=== PATIENT | female | born 1985 | race Caucasian/White ===

== ENCOUNTER 2021-01-16 10:56 | Emergency (ER) | payer OTHER, SELFPAY ==
--- NOTE | ~2021-01-16 | CT_ITS ---
EXAMINATION: CT HEAD WITHOUT CONTRAST CLINICAL INFORMATION: Headache COMPARISON: None. TECHNIQUE: Contiguous axial imaging was performed from the skull base to vertex without intravenous contrast. This CT examination was performed using dose optimization techniques as appropriate, variously including the following: * Automated exposure control * Adjustment of mA and/or kV according to patient size (this includes techniques or standardized protocols for targeted exams where dose is matched to indication/reason for exam; i.e. extremities or head) Use of iterative reconstruction technique DLP: 642 mGy-cm. FINDINGS: There is no evidence of acute intracranial hemorrhage or territorial infarction. No abnormal mass effect or midline shift is seen. Chen to white matter differentiation is well preserved. No extra-axial fluid collections are identified. No hydrocephalus. No significant volume loss. There is no abnormal attenuation within the brain parenchyma. The osseous structures and soft tissues are normal. The mastoid air cells and visualized portions of the paranasal sinuses are well aerated. CT/CT head/brain wo con IMPRESSION: No acute intracranial pathology.
[2021-01-16 11:00] VITALS: BP 177/94; PULSE 96; RESP 18; TEMP 36.9; O2SAT 100; BMI 27.1
--- NOTE | 2021-01-16 12:30 | ED_ITS ---
HPI - General Adult General Chief complaint: General Medical <Medardo Giron NP - Last Filed: 01/16/21 16:16> Stated complaint: HBP, lt arm tingling <Medardo Giron NP - Last Filed: 01/16/21 16:16> Time Seen by Provider: 01/16/21 12:30 <Medardo Giron NP - Last Filed: 01/16/21 16:16> Source: patient <Medardo Giron NP - Last Filed: 01/16/21 16:16> Mode of arrival: ambulatory <Medardo Giron NP - Last Filed: 01/16/21 16:16> Limitations: language barrier (Spokes a broken Malay request mud mixer, mud mixer present for all interactions) <Medarod Giron NP - Last Filed: 01/16/21 16:16> History of Present Illness HPI narrative: Pleasant 35-year-old female who denies any past medical/surgical history she presents today ambulatory via triage with complaint of states that she has been checking her blood pressure at home over the past 5 days or so and it has been running high and a wrist monitor, she went to urgent care 4 days ago and reported symptoms of the high blood pressure and she was started on 5 mg of lisinopril once a day. States she took this the 1st 3 days has not taken it since and today she called her primary care doctor reported her symptoms of the elevated blood pressure also a mild posterior headache and was advised to come to the emergency room. In addition to this she denies any recent illness she does report that she has had some increased stressors recently in relation to her social life including lack of work due to COVID-19, social occasions and such and this has made her overwhelmed/anxious more over the recent week or so. Furthermore she reports she will get some numbness in the right shoulder at times. No neck pain. No vision changes. No photosensitivity. No fever. <Medardo Giron NP - Last Filed: 01/16/21 16:16> Onset (ago): week(s) (1) <Medardo Giron NP - Last Filed: 01/16/21 16:16> Location: head <HERMANN English Last Filed: 01/16/21 16:16> Radiation: non-radiation <Medardo Giron NP - Last Filed: 01/16/21 16:16> Severity: moderate <Medardo Giron NP - Last Filed: 01/16/21 16:16> Quality: aching <Medardo Giron NP - Last Filed: 01/16/21 16:16> Pain Consistency: intermittent <Medardo Giron NP - Last Filed: 01/16/21 16:16> Relieving factors: other (Sleep, rest) <Medardo Giron NP - Last Filed: 01/16/21 16:16> Exacerbating factors: other (Social stressors) <Medardo Giron NP - Last Filed: 01/16/21 16:16> Associated symptoms: denies other symptoms <Medardo Giron NP - Last Filed: 01/16/21 16:16> Treatments prior to arrival: none <Medardo Giron NP - Last Filed: 01/16/21 16:16> Related Data Home medications: Previous Rx's Medication Instructions Recorded lisinopril 5 mg tablet 5 mg PO DAILY #30 tab 01/12/21 hydroxyzine HCl 50 mg PO BEDTIME PRN #30 tab 01/16/21 <Medardo Giron NP - Last Filed: 01/16/21 16:16> Allergies/adverse reactions: Allergies Allergy/AdvReac Type Severity Reaction Status Date / Time Penicillins [PENICILLINS] Allergy Severe SWELLING/RA Verified 01/16/21 10:59 SH aspirin [ASPIRIN] Allergy Intermediate SWELLING/RA Verified 01/16/21 10:59 SH penicillin V Allergy Unknown Swelling Verified 01/16/21 10:59 <Medardo Giron NP - Last Filed: 01/16/21 16:16> Review of Systems Review of Systems: Constitutional: No Weight loss, No Fever, No Chills, No Night Sweats, No Fatigue, No Malaise ENT/Mouth: No Hearing loss, No Ear Pain, No Nasal Congestion, No Sinus Pain, No Hoarseness, No sore throat, No Rhinorrhea, No Swallowing Difficulty Eyes: No Eye Pain, No Swelling, No Redness, No Foreign Body, No Discharge, No Vision Changes Cardiovascular: No Chest Pain, No SOB, No Dyspnea on Exertion, No Orthopnea, No Edema, No Palpitations Respiratory: No Cough, No Sputum, No Wheezing, No Smoke Exposure, No Dyspnea Gastrointestinal: No Nausea, No Vomiting, No Diarrhea, No Constipation, No abdominal Pain, No Hematochezia, No Melena Genitourinary: no irregular bleeding, No Dysuria, No Urinary Frequency, No Hematuria, No Urinary Incontinence, No Urgency, No Flank Pain, No Urinary Flow Changes, No Hesitancy Musculoskeletal: No joint pain, No Myalgias, No Joint Swelling Skin: No Skin Lesions, No rash Neuro: No Weakness, No Numbness, No Paresthesias, No Loss of Consciousness, No Dizziness, + Headache Psych: + Anxiety/Panic, No Depression, No SI/HI/AH/VH Heme/Lymph: No Bruising, No Bleeding,No Lymphadenopathy Endocrine: No Polyuria, No Polydipsia, No Temperature Intolerance <Medardo Giron NP - Last Filed: 01/16/21 16:16> Yes all other systems are reviewed and are negative <Medardo Giron NP - Last Filed: 01/16/21 16:16> ENT: Reports Normal hearing present <Medardo Giron NP - Last Filed: 01/16/21 16:16> Neurologic: Reports Normal hearing present <Medardo Giron NP - Last Filed: 01/16/21 16:16> [facility] Social History Social History: Social History Alcohol intake: current Alcohol intake frequency: holidays/special occasions only Smoking Status: Never smoker Use of substances other than those prescribed or required for medical reasons: No Advance Directives: No Advance Directives Information Provided: No <Medardo Giron NP - Last Filed: 01/16/21 16:16> Physical Exam Vital Signs: Vital Signs: Last Vital Signs Temp 98.6 F 01/16/21 16:15 Pulse 77 01/16/21 16:15 Resp 18 01/16/21 16:15 BP 169/97 H 01/16/21 16:15 Pulse Ox 100 01/16/21 16:15 Body Mass Index 27.1 Reviewed <Medardo Giron NP - Last Filed: 01/16/21 16:16> Vital Signs: Last Vital Signs Temp 98.6 F 01/16/21 16:15 Pulse 77 01/16/21 16:15 Resp 18 01/16/21 16:15 BP 169/97 H 01/16/21 16:15 Pulse Ox 100 01/16/21 16:15 Body Mass Index 27.1 <Camacho Mack MD - Last Filed: 01/31/21 07:45> Const: General: cooperative, healthy appearing and anxious; No acute distress or intoxicated appearing <Medardomaria luisa Giron NP - Last Filed: 01/16/21 16:16> Nutritional Appearance: average body habitus <[facility] HERMANN Giron - Last Filed: 01/16/21 16:16> Orientation/consciousness: patient oriented x3 <[facility] HERMANN Giron - Last Filed: 01/16/21 16:16> HENMT: Head: Yes normal to inspection <[facility] HERMANN Giron - Last Filed: 01/16/21 16:16> Ears: hearing grossly normal bilaterally <[facility] HERMANN Giron - Last Filed: 01/16/21 16:16> Eyes: General: appearance normal, both eyes and all related structures <[facility] HERMANN Giron - Last Filed: 01/16/21 16:16> Visual Villarreal: normal visual villarreal by confrontation <[facility] HERMANN Giron - Last Filed: 01/16/21 16:16> Pupils: Equal, round and reactive pupils present <[facility] HERMANN Giron - Last Filed: 01/16/21 16:16> Neck: Neck: Yes normal visual inspection, Yes no meningeal signs, No positive Brudzinski's sign, No positive Kernig's sign and No tender <[facility] HERMANN Giron - Last Filed: 01/16/21 16:16> Thyroid: Thyroid normal <[facility] HERMANN Giron - Last Filed: 01/16/21 16:16> Chest: Chest palpation & inspection: normal inspection of the chest <[facility] HERMANN Giron - Last Filed: 01/16/21 16:16> Resp: Effort & Inspection: normal respiratory effort <[facility] HERMANN Giron - Last Filed: 01/16/21 16:16> Auscultation: clear to auscultation bilaterally <[facility] HERMANN Giron - Last Filed: 01/16/21 16:16> Cardio: Jugular venous distension: no JVD <[facility] HERMANN Giron - Last Filed: 01/16/21 16:16> Rhythm: regular rhythm <[facility] Last Filed: 01/16/21 16:16> Heart sounds: S1 normal heart sound present and S2 normal heart sound present <[facility] Last Filed: 01/16/21 16:16> GI: Inspection: Yes normal to inspection <[facility] Last Filed: 01/16/21 16:16> Palpation (GI): Soft to palpation, nontender, no guarding and not rigid [facility] - Last Filed: 01/16/21 16:16> Percussion: Yes normal to percussion [facility] Last Filed: 01/16/21 16:16> Auscultation: normal bowel sounds <[facility] - Last Filed: 01/16/21 16:16> : General: Yes no CVA tenderness [facility] Last Filed: 01/16/21 16:16> Back/Spine/Pelvis: Back: no CVA tenderness [facility] Last Filed: 01/16/21 16:16> Skin: General skin exam: no rashes or lesions noted <[facility] Last Filed: 01/16/21 16:16> Neuro: General: patient oriented x3, gait normal, tone normal, moves all extremities, Normal light touch and pain sensation, no meningeal signs, no focal motor deficits, CN's II-XI intact bilaterally and normal sensation to monofilament <[facility] Last Filed: 01/16/21 16:16> Cranial nerves: Yes CN's II-XII intact bilaterally, Yes Facial sensation intact/muscles of mastication intact, Yes Equal, round and reactive pupils present, Yes Normal accommodation reflex present, Yes Bilaterally intact EOM present, Yes Nystagmus not present, Yes Normal facial strength present, Yes Midline tongue present, Yes Normal gag reflex present, Yes Symmetric palate elevation present, Yes Normal hearing present and Yes Ability to bilaterally rotate head present <[facility] Last Filed: 01/16/21 16:16> Cognition (Neuro): normal cognition <[facility] - Last Filed: 01/16/21 16:16> Speech: Other speech findings present (Neuro) (Speech normal) <Medardo Giron Z [employer] - Last Filed: 01/16/21 16:16> Gait exam (Neuro): Normal gait present <Medardo Giron Z [employer] - Last Filed: 01/16/21 16:16> Motor exam (neuro): 5/5 motor strength present throughout <Medardomaria luisa Giron Z [employer] - Last Filed: 01/16/21 16:16> Sensory Exam: Normal double simultaneous stimulation for sensation <Medardomaria luisa Giron Z [employer] - Last Filed: 01/16/21 16:16> Extrem: General: Yes normal to inspection <Medardo Giron Z [employer] - Last Filed: 01/16/21 16:16> NIH Stroke Scale Internal: Initial- Upon Arrival <Medardo Giron Z [employer] - Last Filed: 01/16/21 16:16> Level of Consciousness: Alert <Medardo Giron Z [employer] - Last Filed: 01/16/21 16:16> Level of Consciousness Questions: Answers both questions correctly <Medardo Giron Z [employer] - Last Filed: 01/16/21 16:16> Level of Consciousness Commands: Performs both tasks correctly <Medardo Giron Z [employer] - Last Filed: 01/16/21 16:16> Best Gaze: Normal <Medardo Giron Z [employer] - Last Filed: 01/16/21 16:16> Visual: No visual loss <Medardo Giron Z [employer] - Last Filed: 01/16/21 16:16> Facial Palsy: Normal <Medardomaria luisa Hankinsnas Z [employer] - Last Filed: 01/16/21 16:16> Motor Arm (Right): No drift <Medardomaria luisa Giron Z [employer] - Last Filed: 01/16/21 16:16> Motor Arm (Left): No drift <Medardomaria luisa Hankinsnas Z [employer] - Last Filed: 01/16/21 16:16> Motor Leg (Right): No drift <Medardomaria luisa Hankinsnas Z [employer] - Last Filed: 01/16/21 16:16> Motor Leg (Left): No drift <Medardomaria luisa Hankinsnas Z [employer] - Last Filed: 01/16/21 16:16> Limb Ataxia: Absent <Medardomaria luisa Hankinsnas Z [employer] - Last Filed: 01/16/21 16:16> Sensory: Normal <Medardomaria luisa Hankinsnas Z [employer] - Last Filed: 01/16/21 16:16> Best Language: No aphasia <Medardomaria luisa Giron NP - Last Filed: 01/16/21 16:16> Dysarthia: Normal <Medardomaria luisa Giron NP - Last Filed: 01/16/21 16:16> Extinction and Inattention: No abnormality <Medardomaria luisa Giron NP - Last Filed: 01/16/21 16:16> Score: 0 <Medardo Giron NP - Last Filed: 01/16/21 16:16> Course Course Course Narrative: I have reviewed the chart <Camacho Mack MD - Last Filed: 01/31/21 07:45> Reevaluation(s) Reevaluation #1: 1220 Constellation of symptoms I 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 She was started on lisinopril 5 mg 5 days ago. Mild occipital headache resolved with sleep and rest not worst headache or thunderclap like headache, no fevers, neck pain or injury. No family history of Ca, does have strong family of HTN. Some shoulder arm numbness on the left side without neck pain. She has no focal neurological findings on exam. Will check labs including lytes for derangement, troponin EKG for rule out ACS though story is very inconsistent with this, head CT rule out mass. Will treat her with hydroxyzine 50 mg p.o.. <Medardo Giron NP - Last Filed: 01/16/21 16:16> Reevaluation #2: CBC findings reviewed likely component of LATA H&H is stable, no active bleeding. Otherwise labs overall unrevealing, troponin negative, TSH negative. Head CT without evidence of acute intracranial process/mass. She had fact feels much better after hydroxyzine as anticipated. Her blood pressure is 149/96. Given the diastolic pressure elevation again likely secondary to the psychosocial stressors but will have her continue to keep a log of her blood pressures at home she can continue taking the 5 mg of lisinopril in the morning. Additionally I will supplement her medication regiment with hydroxyzine 50 mg at bedtime, lifestyle modifications, D stressors, low-sodium diet and she has appointment mental her GP on February 13. She otherwise is without complaints at this time no headache, chest pain or shortness of breath. Remains neurologically intact. Stable for discharge. <Medardo Giron NP - Last Filed: 01/16/21 16:16> Medical Decision Making Lab Data Result diagrams: : 01/16/21 12:54 01/16/21 12:54 <Medardo Giron NP - Last Filed: 01/16/21 16:16> Labs: Lab Results 01/16/21 01/16/21 01/16/21 Range/Units 12:54 12:54 12:54 WBC 4.7 L (4.8-10.8) X10*3/uL RBC 5.19 (4.20-5.50) X10*6/uL Hgb 11.1 L (12.0-16.0) g/dl Hct 37.7 (37-47) % MCV 72.6 L (80-98) fL MCH 21.4 L (27.0-33.0) pg MCHC 29.4 L (31.0-35.0) g/dl RDW 16.7 H (11.0-16.0) % Plt Count 277 (160-400) X10*3/uL MPV 8.8 L (9.4-12.3) fL Immature Gran % (Auto) 0.2 (0.0-0.4) % Neut % (Auto) 62.7 (45-73) % Lymph % (Auto) 25.7 (20-40) % [place] % (Auto) 7.9 (2-11) % Eos % (Auto) 2.6 (0-4) % Baso % (Auto) 0.9 (0-2) % Lymph # (Auto) 1.2 (1.2-4.9) X10*3/uL [place] # (Auto) 0.4 (0.1-1.2) X10*3/uL Eos # (Auto) 0.1 (0.0-0.4) X10*3/uL Baso # (Auto) 0.0 (0.0-0.2) X10*3/uL Abs Immat Gran (auto) 0.01 (0.00-0.03) X10*3/uL Absolute Neuts (auto) 3.0 (2.0-8.3) X10*3/uL Absolute Nucleated RBC 0.000 (0.0-0.012) X10*3/uL Nucleated RBC % (auto) 0.0 (0.0-0.2) /100WBC PT 13.0 (10.8-13.0) SEC INR 1.1 (0.9-1.1) APTT 38.9 H (24.1-38.0) SEC Sodium 138 (135-145) mmol/L Potassium 3.9 (3.3-5.1) mmol/L Chloride 102 (96-108) mmol/L Carbon Dioxide 28 (22-29) mmol/L Anion Gap 12 (12-20) BUN 10 (9-16) mg/dL Creatinine 0.65 (0.5-1.4) mg/dL Estim Creat Clear Calc 127.2 Estimated GFR > 60 Random Glucose 93 (60-115) mg/dL Calcium 9.5 (8.4-10.2) mg/dL Magnesium 2.3 (1.6-2.6) mg/dL Total Bilirubin 0.5 (0.0-1.0) mg/dL AST 17 (5-31) U/L ALT 13 (0-31) U/L Alkaline Phosphatase 70 (39-117) U/L Troponin I High Sens (<3.5-17.0) ng/L Total Protein 8.1 H (6.5-8.0) g/dL Albumin 4.6 (3.5-5.0) g/dL TSH 0.78 (0.32-4.0) uIU/mL Urine Color Urine Appearance Urine pH (5.0-8.0) Ur Specific [place] (1.005-1.025) Urine Protein (NEG-TRACE) MG/DL Urine Glucose (UA) (NEG) MG/DL Urine Ketones (NEG) MG/DL Urine Blood (NEG) Urine Nitrite (NEG) Ur Leukocyte Esterase (NEG) Urine RBC (0) /HPF Urine WBC (0-4) /HPF Ur Squamous Epith Cells /LPF Urine Bacteria /LPF Urine Opiates Screen (Not Detect) Ur Barbiturates Screen (Not Detect) Ur Phencyclidine Scrn (Not Detect) Ur Amphetamines Screen (Not Detect) U Benzodiazepines Scrn (Not Detect) Urine Cocaine Screen (Not Detect) U Marijuana (THC) Screen (Not Detect) 01/16/21 01/16/21 01/16/21 Range/Units 12:54 12:54 12:54 WBC (4.8-10.8) X10*3/uL RBC (4.20-5.50) X10*6/uL Hgb (12.0-16.0) g/dl Hct (37-47) % MCV (80-98) fL MCH (27.0-33.0) pg MCHC (31.0-35.0) g/dl RDW (11.0-16.0) % Plt Count (160-400) X10*3/uL MPV (9.4-12.3) fL Immature Gran % (Auto) (0.0-0.4) % Neut % (Auto) (45-73) % Lymph % (Auto) (20-40) % [place] % (Auto) (2-11) % Eos % (Auto) (0-4) % Baso % (Auto) (0-2) % Lymph # (Auto) (1.2-4.9) X10*3/uL [place] # (Auto) (0.1-1.2) X10*3/uL Eos # (Auto) (0.0-0.4) X10*3/uL Baso # (Auto) (0.0-0.2) X10*3/uL Abs Immat Gran (auto) (0.00-0.03) X10*3/uL Absolute Neuts (auto) (2.0-8.3) X10*3/uL Absolute Nucleated RBC (0.0-0.012) X10*3/uL Nucleated RBC % (auto) (0.0-0.2) /100WBC PT (10.8-13.0) SEC INR (0.9-1.1) APTT (24.1-38.0) SEC Sodium (135-145) mmol/L Potassium (3.3-5.1) mmol/L Chloride (96-108) mmol/L Carbon Dioxide (22-29) mmol/L Anion Gap (12-20) BUN (9-16) mg/dL Creatinine (0.5-1.4) mg/dL Estim Creat Clear Calc Estimated GFR Random Glucose (60-115) mg/dL Calcium (8.4-10.2) mg/dL Magnesium (1.6-2.6) mg/dL Total Bilirubin (0.0-1.0) mg/dL AST (5-31) U/L ALT (0-31) U/L Alkaline Phosphatase (39-117) U/L Troponin I High Sens < 3.5 (<3.5-17.0) ng/L Total Protein (6.5-8.0) g/dL Albumin (3.5-5.0) g/dL TSH (0.32-4.0) uIU/mL Urine Color YELLOW Urine Appearance CLEAR Urine pH 7.0 (5.0-8.0) Ur Specific [place] <= 1.005 (1.005-1.025) Urine Protein NEG (NEG-TRACE) MG/DL Urine Glucose (UA) NEG (NEG) MG/DL Urine Ketones NEG (NEG) MG/DL Urine Blood NEG (NEG) Urine Nitrite NEG (NEG) Ur Leukocyte Esterase NEG (NEG) Urine RBC 0 (0) /HPF Urine WBC 0 (0-4) /HPF Ur Squamous Epith Cells TRACE /LPF Urine Bacteria NONE /LPF Urine Opiates Screen Not Detected (Not Detect) Ur Barbiturates Screen Not Detected (Not Detect) Ur Phencyclidine Scrn Not Detected (Not Detect) Ur Amphetamines Screen Not Detected (Not Detect) U Benzodiazepines Scrn Not Detected (Not Detect) Urine Cocaine Screen Not Detected (Not Detect) U Marijuana (THC) Screen Not Detected (Not Detect) <Medardo Giron NP - Last Filed: 01/16/21 16:16> Lab Results 01/16/21 01/16/21 01/16/21 Range/Units 12:54 12:54 12:54 WBC 4.7 L (4.8-10.8) X10*3/uL RBC 5.19 (4.20-5.50) X10*6/uL Hgb 11.1 L (12.0-16.0) g/dl Hct 37.7 (37-47) % MCV 72.6 L (80-98) fL MCH 21.4 L (27.0-33.0) pg MCHC 29.4 L (31.0-35.0) g/dl RDW 16.7 H (11.0-16.0) % Plt Count 277 (160-400) X10*3/uL MPV 8.8 L (9.4-12.3) fL Immature Gran % (Auto) 0.2 (0.0-0.4) % Neut % (Auto) 62.7 (45-73) % Lymph % (Auto) 25.7 (20-40) % [place] % (Auto) 7.9 (2-11) % Eos % (Auto) 2.6 (0-4) % Baso % (Auto) 0.9 (0-2) % Lymph # (Auto) 1.2 (1.2-4.9) X10*3/uL [place] # (Auto) 0.4 (0.1-1.2) X10*3/uL Eos # (Auto) 0.1 (0.0-0.4) X10*3/uL Baso # (Auto) 0.0 (0.0-0.2) X10*3/uL Abs Immat Gran (auto) 0.01 (0.00-0.03) X10*3/uL Absolute Neuts (auto) 3.0 (2.0-8.3) X10*3/uL Absolute Nucleated RBC 0.000 (0.0-0.012) X10*3/uL Nucleated RBC % (auto) 0.0 (0.0-0.2) /100WBC PT 13.0 (10.8-13.0) SEC INR 1.1 (0.9-1.1) APTT 38.9 H (24.1-38.0) SEC Sodium 138 (135-145) mmol/L Potassium 3.9 (3.3-5.1) mmol/L Chloride 102 (96-108) mmol/L Carbon Dioxide 28 (22-29) mmol/L Anion Gap 12 (12-20) BUN 10 (9-16) mg/dL Creatinine 0.65 (0.5-1.4) mg/dL Estim Creat Clear Calc 127.2 Estimated GFR > 60 Random Glucose 93 (60-115) mg/dL Calcium 9.5 (8.4-10.2) mg/dL Magnesium 2.3 (1.6-2.6) mg/dL Total Bilirubin 0.5 (0.0-1.0) mg/dL AST 17 (5-31) U/L ALT 13 (0-31) U/L Alkaline Phosphatase 70 (39-117) U/L Troponin I High Sens (<3.5-17.0) ng/L Total Protein 8.1 H (6.5-8.0) g/dL Albumin 4.6 (3.5-5.0) g/dL TSH 0.78 (0.32-4.0) uIU/mL Urine Color Urine Appearance Urine pH (5.0-8.0) Ur Specific [place] (1.005-1.025) Urine Protein (NEG-TRACE) MG/DL Urine Glucose (UA) (NEG) MG/DL Urine Ketones (NEG) MG/DL Urine Blood (NEG) Urine Nitrite (NEG) Ur Leukocyte Esterase (NEG) Urine RBC (0) /HPF Urine WBC (0-4) /HPF Ur Squamous Epith Cells /LPF Urine Bacteria /LPF Urine Opiates Screen (Not Detect) Ur Barbiturates Screen (Not Detect) Ur Phencyclidine Scrn (Not Detect) Ur Amphetamines Screen (Not Detect) U Benzodiazepines Scrn (Not Detect) Urine Cocaine Screen (Not Detect) U Marijuana (THC) Screen (Not Detect) 01/16/21 01/16/21 01/16/21 Range/Units 12:54 12:54 12:54 WBC (4.8-10.8) X10*3/uL RBC (4.20-5.50) X10*6/uL Hgb (12.0-16.0) g/dl Hct (37-47) % MCV (80-98) fL MCH (27.0-33.0) pg MCHC (31.0-35.0) g/dl RDW (11.0-16.0) % Plt Count (160-400) X10*3/uL MPV (9.4-12.3) fL Immature Gran % (Auto) (0.0-0.4) % Neut % (Auto) (45-73) % Lymph % (Auto) (20-40) % [place] % (Auto) (2-11) % Eos % (Auto) (0-4) % Baso % (Auto) (0-2) % Lymph # (Auto) (1.2-4.9) X10*3/uL [place] # (Auto) (0.1-1.2) X10*3/uL Eos # (Auto) (0.0-0.4) X10*3/uL Baso # (Auto) (0.0-0.2) X10*3/uL Abs Immat Gran (auto) (0.00-0.03) X10*3/uL Absolute Neuts (auto) (2.0-8.3) X10*3/uL Absolute Nucleated RBC (0.0-0.012) X10*3/uL Nucleated RBC % (auto) (0.0-0.2) /100WBC PT (10.8-13.0) SEC INR (0.9-1.1) APTT (24.1-38.0) SEC Sodium (135-145) mmol/L Potassium (3.3-5.1) mmol/L Chloride (96-108) mmol/L Carbon Dioxide (22-29) mmol/L Anion Gap (12-20) BUN (9-16) mg/dL Creatinine (0.5-1.4) mg/dL Estim Creat Clear Calc Estimated GFR Random Glucose (60-115) mg/dL Calcium (8.4-10.2) mg/dL Magnesium (1.6-2.6) mg/dL Total Bilirubin (0.0-1.0) mg/dL AST (5-31) U/L ALT (0-31) U/L Alkaline Phosphatase (39-117) U/L Troponin I High Sens < 3.5 (<3.5-17.0) ng/L Total Protein (6.5-8.0) g/dL Albumin (3.5-5.0) g/dL TSH (0.32-4.0) uIU/mL Urine Color YELLOW Urine Appearance CLEAR Urine pH 7.0 (5.0-8.0) Ur Specific [place] <= 1.005 (1.005-1.025) Urine Protein NEG (NEG-TRACE) MG/DL Urine Glucose (UA) NEG (NEG) MG/DL Urine Ketones NEG (NEG) MG/DL Urine Blood NEG (NEG) Urine Nitrite NEG (NEG) Ur Leukocyte Esterase NEG (NEG) Urine RBC 0 (0) /HPF Urine WBC 0 (0-4) /HPF Ur Squamous Epith Cells TRACE /LPF Urine Bacteria NONE /LPF Urine Opiates Screen Not Detected (Not Detect) Ur Barbiturates Screen Not Detected (Not Detect) Ur Phencyclidine Scrn Not Detected (Not Detect) Ur Amphetamines Screen Not Detected (Not Detect) U Benzodiazepines Scrn Not Detected (Not Detect) Urine Cocaine Screen Not Detected (Not Detect) U Marijuana (THC) Screen Not Detected (Not Detect) <Camacho Mack MD - Last Filed: 01/31/21 07:45> Imaging Data Head CT: Radiologist's impression: [address] [id number] Scan ReportSigned Patient: Mushtaq Austin#: [id number]: 1985Acct:[id number]/Sex: 35 / FADM Date: 01/16/21Loc: [email or web address] Dr: Ordering Physician: Medardo Giron NP Date of Service: 01/16/21 Procedure(s): CT head/brain wo con Accession Number(s): [id number] cc: Medardo Giron NP~ EXAMINATION: CT HEAD WITHOUT CONTRAST CLINICAL INFORMATION: Headache COMPARISON: None. TECHNIQUE: Contiguous axial imaging was performed from the skull base to vertex without intravenous contrast. This CT examination was performed using dose optimization techniques as appropriate, variously including the following: * Automated exposure control * Adjustment of mA and/or kV according to patient size (this includes techniques or standardized protocols for targeted exams where dose is matched to indication/reason for exam; i.e. extremities or head) Use of iterative reconstruction technique DLP: 642 mGy-cm. FINDINGS: There is no evidence of acute intracranial hemorrhage or territorial infarction. No abnormal mass effect or midline shift is seen. Chen to white matter differentiation is well preserved. No extra-axial fluid collections are identified. No hydrocephalus. No significant volume loss. There is no abnormal attenuation within the brain parenchyma. The osseous structures and soft tissues are normal. The mastoid air cells and visualized portions of the paranasal sinuses are well aerated. CT/CT head/brain wo con IMPRESSION: No acute intracranial pathology. Dictated By:Walker Layne MDSigned By:<Electronically signed by Walker Layne MD in [place]>01/16/21 1358 DD/ 1237TD/TT: Contract Driver: DEBORAH <Medardo Giron NP - Last Filed: 01/16/21 16:16> ECG Data Interpretation: Normal sinus rhythm Rate 69 Normal ECG No previous ECGs available <Medardo Giron NP - Last Filed: 01/16/21 16:16> Discharge Plan Discharge Clinical Impression: Hypertension, Anxiety <Medardo Giron NP - Last Filed: 01/16/21 16:16> Patient Disposition: Home, Self-Care <Medardo Giron NP - Last Filed: 01/16/21 16:16> Instructions: Low-Sodium Diet (ED), Hypertension (ED), Anxiety (ED) <Medardo Giron NP - Last Filed: 01/16/21 16:16> Additional Instructions: Drink plenty fluids Low-sodium diet Take medication prescribed Follow up with her primary care doctor as discussed Keep a blood pressure log Return if any concerns or worsening symptoms Thank you <Medardo Giron NP - Last Filed: 01/16/21 16:16> Prescriptions: New hydroxyzine HCl 50 mg tablet 50 mg PO BEDTIME PRN (Reason: Anxiety/sleep) Qty: 30 RF: 0 No Action lisinopril 5 mg tablet 5 mg PO DAILY Qty: 30 RF: 2 <Medardo Giron NP - Last Filed: 01/16/21 16:16> Referrals: Physician,Unknown [Primary Care Provider] - 1 week <Medardo Giron NP - Last Filed: 01/16/21 16:16> Interventions: ED Discharge Assessment Last Done: 01/16/21 16:38 <Medardo Giron NP - Last Filed: 01/16/21 16:16> Discharge Date/Time: 01/16/21 16:39 <Medardo Giron NP - Last Filed: 01/16/21 16:16>
--- NOTE | 2021-01-16 12:39 | ECG_ITS ---
Test Reason : HTN Blood Pressure : / mmHG Vent. Rate : 069 BPM Atrial Rate : 069 BPM P-R Int : 154 ms QRS Dur : 082 ms QT Int : 392 ms P-R-T Axes : 072 050 059 degrees QTc Int : 420 ms Normal sinus rhythm Normal ECG No previous ECGs available Referred By: Medardo Giron Electronically Signed By:GORDO BARAJAS MD
[2021-01-16 13:00] LABS: MANUAL DIFF FLAG NO
[2021-01-16 13:03] LABS: Basophils Percent Auto 0.9 % (0-2); Eosinophils Absolute Auto 0.1 X10*3/uL (0.0-0.4); Eosinophils Percent Auto 2.6 % (0-4); Hematocrit 37.7 % (37-47); Hemoglobin 11.1 g/dl (12.0-16.0); Imm Gran Abs Auto 0.01 X10*3/uL (0.00-0.03); Imm Gran Pct Auto 0.2 % (0.0-0.4); Lymphocytes Absolute Auto 1.2 X10*3/uL (1.2-4.9); Lymphocytes Percent Auto 25.7 % (20-40); Mean Corpuscular HGB Conc 29.4 g/dl (31.0-35.0); Mean Corpuscular Hemoglobin 21.4 pg (27.0-33.0); Mean Corpuscular Volume 72.6 fL (80-98); Mean Platelet Volume 8.8 fL (9.4-12.3); Monocytes Absolute Auto 0.4 X10*3/uL (0.1-1.2); Monocytes Percent Auto 7.9 % (2-11); Neutrophils Percent Auto 62.7 % (45-73); Platelet Count 277 X10*3/uL (160-400); Red Blood Count 5.19 X10*6/uL (4.20-5.50); Red Cell Distribution Width 16.7 % (11.0-16.0); White Blood Count 4.7 X10*3/uL (4.8-10.8)
[2021-01-16] MEDS: hydrOXYzine HCL 50 MG TABLET PO (13:03)
[2021-01-16 13:07] LABS: Glucose Urine UA NEG (NEG); Leukocyte Esterase Urine NEG (NEG); Nitrite Urine NEG (NEG); Specific Gravity - Urine <= 1.005 (1.005-1.025); Urine Blood NEG (NEG); Urine Ketones NEG (NEG); Urine Protein NEG (NEG-TRACE)
[2021-01-16 13:08] LABS: Appearance Urine CLEAR; Color Urine YELLOW
[2021-01-16 13:10] LABS: INTERNATIONAL NORM RATIO 1.1 (0.9-1.1)
[2021-01-16 13:17] LABS: RBC Urine 0 /HPF (0); Squamous Epithelial Cell Urine TRACE /LPF; WBC Urine 0 /HPF (0-4)
[2021-01-16 13:19] VITALS: BP 159/85; PULSE 86; RESP 18; TEMP 37; O2SAT 100
--- NOTE | 2021-01-16 13:21 | PC.NURSE ---
patient a&ox3, labs drawn, urine obtained, pt to radiology, currently having ekg performed, medicated per order, will continue to monitor.
[2021-01-16 13:24] LABS: Amphetamine Screen Urine Not Detected (Not Detect); Barbiturates, Urine Not Detected (Not Detect); Benzodiazepines Screen Urine Not Detected (Not Detect); Cannabinoid Screen Urine Not Detected (Not Detect); Cocaine Screen Urine Not Detected (Not Detect); Opiate Screen Urine Not Detected (Not Detect); Phencyclidine Screen Urine Not Detected (Not Detect)
[2021-01-16 13:25] LABS: Alanine Aminotransferase 13 U/L (0-31); Albumin Level 4.6 g/dL (3.5-5.0); Alkaline Phosphatase 70 U/L (39-117); Anion Gap 12 (12-20); Aspartate Amino Transferase 17 U/L (5-31); Bilirubin Total 0.5 mg/dL (0.0-1.0); Blood Urea Nitrogen 10 mg/dL (9-16); Calcium 9.5 mg/dL (8.4-10.2); Carbon Dioxide 28 mmol/L (22-29); Chloride 102 mmol/L (96-108); Creatinine Clr Calc Pharmacy 127.2; Estimated Glomerular Filt Rate > 60; Glucose Random 93 mg/dL (60-115); Magnesium 2.3 mg/dL (1.6-2.6); Potassium 3.9 mmol/L (3.3-5.1); Sodium 138 mmol/L (135-145); Total Protein 8.1 g/dL (6.5-8.0)
[2021-01-16 13:29] LABS: Partial Thromboplastin Time 38.9 SEC (24.1-38.0)
[2021-01-16 13:31] LABS: Troponin-I High Sensitivity < 3.5 ng/L (<3.5-17.0)
[2021-01-16 13:46] LABS: Thyroid Stimulating Hormone 0.78 uIU/mL (0.32-4.0)
[2021-01-16 14:00] VITALS: BP 149/96; PULSE 78; RESP 18; TEMP 36.9; O2SAT 100
[2021-01-16 16:15] VITALS: BP 169/97; PULSE 77; RESP 18; TEMP 37; O2SAT 100
--- NOTE | 2021-01-16 16:16 | PC.NURSE ---
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
== END 2021-01-16 16:39 | disposition home or self-care (01) ==
PROVIDERS: Nurse Practitioner Primary Care; Emergency Provider Emergency Medicine
DX: I10 Essential (primary) hypertension (principal); F41.9 Anxiety disorder, unspecified; Z79.899 Other long term (current) drug therapy
CPT/HCPCS: 36415; 70450; 80053; 80307; 81001; 83735; 84443; 84484; 85025; 85610; 85730; 93005; 99284